=== PATIENT | male | born 1970 | race Asian ===

== ENCOUNTER 2016-04-29 11:58 | Inpatient (IN) | payer OTHER ==
--- NOTE | 2016-04-24 16:21 | PREOPHP ---
DATE OF ADMISSION: 04/29/2016 This is a preoperative internal medicine consultation and medical history and physical. Patient to have surgery with Dr. Gilberto Ulloa on 04/29/2016. REQUESTING PHYSICIAN: This consultation requested by Dr. Gilberto Ulloa for medical evaluation and clearance of a 45-year-old gentleman about to undergo surgery on his cervical spine. Thank you, Dr. Ulloa, for allowing us to participate in the care of this patient. HISTORY OF PRESENT ILLNESS: Dawson Sinclair is a 45-year-old gentleman. Issues with his neck secondary to a work injury. He is currently being admitted for correction of the above problem. In terms of prior surgical history, the patient has had a rotator cuff repair, arthroscopic on the r ight side, fractured his left arm and was admitted for bleeding ulcer probably secondary to use of n onsteroidal medications. Other than that, he has been relatively healthy. MEDICATIONS: He is currently taking Nexium and Pepcid regularly twice a day. ALLERGIES: HE IS NOT ALLERGIC TO ANY MEDICATIONS. SOCIAL HISTORY: The patient is , has 2 children. He does not smoke or drink alcoholic bever ages. Does drink coffee, is employed for [employer] and has no trouble sleeping at night. FAMILY HISTORY: Father at age 80 of a stroke, had high blood pressure. Mother, 71, and is a d iabetic, also has hypertension. One brother has hypertension and gout. One sister is in good healt h. There is a family history of diabetes, cancer, hypertension, stroke, heart disease. No obvious thyroid disease. REVIEW OF SYSTEMS HEENT: Periodic tension headaches, especially related to his neck. CARDIORESPIRATORY: Denies any chest pain or shortness of breath. GASTROINTESTINAL: No melena or hematemesis currently, but does have some acid symptomology periodic ally. GENITOURINARY: No urgency, frequency. MUSCULOSKELETAL: Positive for neck issues. NEUROPSYCHIATRIC: Unremarkable. GENERAL HEALTH: As above. PHYSICAL EXAMINATION: VITAL SIGNS: The patient's blood pressure was 120/80, pulse was 56 and regular, respirations were 1 8, temperature 98, height 5 foot 7-1/2 inches, weight 177 pounds. GENERAL: The patient was noted to be a well-developed, well-nourished male, alert and cooperative, in no apparent acute distress, oriented to time, place, and person. HEENT: Head was atraumatic. Eyes: Pupils were equal, reactive to light and accommodation. Fundi were benign. Tympanic membranes were unremarkable. Nose was negative. Mouth was unremarkable. Fa ir oral hygiene was present. NECK: Supple without any rigidity. Trachea was midline. Thyroid was unremarkable. Neck veins wer e flat. Carotid pulses were equal. No bruits were heard. BACK: Unremarkable. CHEST: Symmetrical. BREASTS AND AXILLARY: Did not reveal any masses. LUNGS: Clear to percussion and auscultation. HEART: PMI is fifth intercostal space at the midclavicular line. Regular sinus rhythm was noted. No significant murmurs, rubs, or gallops being elicited. ABDOMEN: Soft, good bowel sounds were noted. No significant organomegaly, masses, or tenderness. GENITALIA: Male external genitalia. RECTAL AND PROSTATIC: Per PCP. EXTREMITIES: Did not reveal any clubbing, edema or cyanosis. Peripheral pulses were physiologic. SKIN: Moist and warm without any eruptions. No gross lymphadenopathy was noted. NEUROLOGIC: Grossly intact. IMPRESSION: 1. Cervical disk disease in particular her C6-C7. 2. Gastroesophageal reflux disease and history of prior ulcers. 3. Stable health. DISCUSSION: Review of laboratory and other data revealed the following: The patient's chemistries revealed a normal glucose, BUN and creatinine. Liver function tests revealed minimally elevated ALT of 58, normal electrolytes, magnesium, iron, CBC, sed rate 2. A PT and PTT were normal as well. Dr. Ulola, I see no contraindications to the patient undergoing current proposed surgery under d esired form of anesthesia. I feel he is a suitable candidate at this particular point in time. I will be more than happy to follow him along with you during his stay at [facility]. Thank you again, Dr. Ulloa for allowing us to participate in the care of this patient. Dictated By: ANDREA VAZQUEZ/JARRELL Conf#: [id number] DID#: [id number]
[2016-04-28 13:44] VITALS: BMI 29.5
[2016-04-29] VITALS (26 sets, daily range): BP systolic 102–133; BP diastolic 58–85; PULSE 51–84; RESP 15–19; Ht 170.2 cm; Wt 77.3 kg
[~2016-04-29] VITALS: Ht 170.2 cm; Wt 77.3 kg
[2016-04-29] MEDS ORDERED: HYDR-902 PO (12:55)
[2016-04-29] MEDS ORDERED: FAMO40TA52 PO (12:55)
[2016-04-29] MEDS ORDERED: LACTATED RINGER'S 1,000 ML IV* SCH (13:00)
[2016-04-29] MEDS ORDERED: CEFAZOLIN 2 GM/50 ML (PMX) 50 ML IVPB ONE (13:00)
--- NOTE | 2016-04-29 14:45 | HPN ---
Date/Time of Note Date/Time of Note DATE: 04/29/16 TIME: 14:44 Interval H&P Admission Note Pt. seen H&P reviewed: No system changes SUSHANT SAMS PA-C Apr 29, 2016 14:44
[2016-04-29] MEDS ORDERED: BUPIVACAINE 0.25%/EPI (SDV) 30 ML INJ ONE (14:55)
[2016-04-29] MEDS ORDERED: POLYMYXIN/BACITRACIN 1L IRRIG ONE (14:55)
[2016-04-29] MEDS ORDERED: THROMBIN 5000 UNIT VIAL ONE ×3 (14:55→16:58)
[2016-04-29] MEDS ORDERED: SURGIFOAM POWDER 1 GM KIT ONE (14:56)
[2016-04-29] MEDS ORDERED: HYDROmorphONE 0.2 MG/ML PCA IV SCH (15:00)
[2016-04-29] MEDS ORDERED: ACETAMINOPHEN 325 MG TAB PO PRN (15:00)
[2016-04-29] MEDS ORDERED: HYDROmorphONE 1 MG/ML SYG IV PRN (15:00)
[2016-04-29] MEDS ORDERED: CEPASTAT LOZENGE MT PRN (15:00)
[2016-04-29] MEDS ORDERED: ONDANSETRON 4 MG INJ IV PRN ×2 (15:00→19:30)
[2016-04-29] MEDS ORDERED: BISACODYL 10 MG SUPP PR PRN (15:00)
[2016-04-29] MEDS ORDERED: AL HYDROX/MG HYDROX/SIMETH 30 ML CUP PO PRN (15:00)
[2016-04-29] MEDS ORDERED: NALOXONE (0.4 MG/ML) INJ IV PRN (15:00)
[2016-04-29] MEDS ORDERED: ZOLPIDEM 5 MG TAB PO PRN (15:00)
[2016-04-29] MEDS ORDERED: DIPHENHYDRAMINE 50 MG INJ IV PRN ×2 (15:00→19:30)
[2016-04-29] MEDS ORDERED: CYCLOBENZAPRINE 10 MG TAB PO PRN (15:00)
[2016-04-29] MEDS ORDERED: METOCLOPRAMIDE 10 MG INJ ONE (15:07)
[2016-04-29] MEDS ORDERED: DEXAMETHASONE 4 MG/ML 1 ML INJ ONE (15:07)
[2016-04-29] MEDS ORDERED: MIDAZOLAM 1 MG/ML 2 ML INJ ONE (15:07)
[2016-04-29] MEDS ORDERED: ROCURONIUM 50 MG INJ ONE ×2 (15:07→16:06)
[2016-04-29] MEDS ORDERED: HYDROmorphONE 2 MG/ML SYG ONE (15:07)
[2016-04-29] MEDS ORDERED: PROPOFOL 20 ML ONE (15:07)
[2016-04-29] MEDS ORDERED: CEFAZOLIN 1 GM INJ ONE (15:26)
[2016-04-29] MEDS ORDERED: METOPROLOL 5 MG INJ ONE (15:33)
[2016-04-29] MEDS ORDERED: GELATIN SIZE 100 SPONGE ONE (16:58)
[2016-04-29] MEDS ORDERED: NEOSTIGMINE 3 MG/3 ML SYRINGE ONE (17:42)
[2016-04-29] MEDS ORDERED: GLYCOPYRROLATE 1 MG INJ ONE (17:42)
--- NOTE | 2016-04-29 18:35 | OPR ---
DATE OF OPERATION: 04/29/2016 PREOPERATIVE DIAGNOSIS: C6 to C7 disk herniation with left cervical radiculopathy. POSTOPERATIVE DIAGNOSIS: C6 to C7 disk herniation with left cervical radiculopathy. IMPLANTS: Synthes Prodisc extra large 5 mm height, 19 mm width, 16 mm depth. OPERATION PERFORMED: 1. Anterior cervical diskectomy and spinal cord decompression at C6 to C7. 2. Anterior cervical disk arthroplasty at C6 to C7. 3. Use of operative microscope. 4. Use of C-arm fluoroscopy with interpretation without radiologist present. 5. Intraoperative neuromonitoring (2 hours). SURGEON: Gilberto Ulloa MD PRODUCTION MACHINIST: Bia Alexandra PA-C NEED FOR PRODUCT DESIGN ENGINEER: During this spinal surgical procedure, my training program assistant was used to retract and protect the spinal nerves and dural sac. My training program assistant also employed the suction catheters to evacuate blood from the surgical field to improve visualization of the neural structures. The training program assistant was medically necessary to facilitate the completion of the surgery in a safe and expeditious manner. [facility] [place] regulations, as well as hospital bylaws, preclude the use of non-licensed health care personnel, such as operating room technicians, to perform these functions. FINDINGS: Neuromonitoring at the start of the case revealed bilateral C6 amplitude down 20%, left C7 amplitude down 40%, right C7 down 20%. At the end of the case, nerve signals returned to normal. The patient had left-sided disk herniation at C6 to C7. ESTIMATED BLOOD LOSS: 30 mL. DRAINS: None. COMPLICATIONS OF PROCEDURES: None. ANESTHESIOLOGIST: Dr. Lam TYPE OF ANESTHESIA: General. INDICATIONS FOR PROCEDURE: This is a 45-year-old gentleman with left cervical radiculopathy in the setting of a disk herniation. He had failed nonoperative measures; therefore, I recommended proceeding with the above-mentioned surgery. Preoperatively discussed risks, benefits, and alternatives. He understood and wished to proceed. DESCRIPTION OF PROCEDURE IN DETAIL: The patient was identified in the preoperative holding area, given Ancef antibiotic, taken to the operating room, where he was successfully placed under general anesthesia. Neuromonitoring leads were placed. Sequential compressive devices were applied. Neuromonitoring was utilized during the procedure for 2 hours to include SSEP, MEP, and EMG. This was performed by [facility]. The start time was 3:45 p.m., closure time was 5:45 p.m. The patient's neck was prepped and draped in usual sterile fashion. A left-sided approach to the neck was performed. Skin was incised. The platysma was incised in line with the skin incision. I identified an interval between the sternocleidomastoid and strap muscles. I identified the anterior spine. I placed a bent spinal needle and took a lateral film to confirm the correct levels. I then subperiosteally dissected the longus colli musculature and placed self-retaining retractors. Anesthesiologist deflated and reinflated the cuff. I then placed Portland pins, made an annulotomy, and distracted the disk space. I then performed a complete radical diskectomy using curettes, pituitary rongeurs, and Kerrison punches. I removed the posterior longitudinal ligament. I identified the extruded fragment , which I removed. Once this was done, all nerve signals returned to normal. I irrigated the wound. I placed various trials and chose the appropriate disk height. I then made the keel cuts, removed them, and placed the final total disk arthroplasty device under C-arm imaging guidance. Once this was done, I took final AP and lateral images to assess for hardware and alignment of the spine. I irrigated the wound. I removed the Portland pins and used bone wax to stop bleeding from the bony edges. I reirrigated the wound and removed the retractors and closed the platysma with a running 2-0 Vicryl stitch and closed subcutaneous tissue with a 3-0 Vicryl stitch. Dermabond was then applied. The patient was then awakened from anesthesia and taken to recovery in stable condition. Lap, sponge, and instrument counts were correct x2. There were no apparent complications during the procedure. The patient will be admitted to the [facility] for routine postoperative care to include pain control, neurovascular checks, antibiotics, and physical therapy. Dictated By: GILBERTO PEÑA/JARRELL Conf#: [id number] DID#: [id number] NERY
--- NOTE | 2016-04-29 18:50 | CONS ---
DATE OF ADMISSION: 04/29/2016 DATE OF CONSULTATION: 04/29/2016 REASON FOR CONSULTATION: This is a postoperative followup. The patient had surgery with Dr. Gilberto carrera 04/29/2016. HISTORY OF PRESENT ILLNESS: Patient seen in the recovery room, still groggy from his anesthetic, ba rely arousable. PHYSICAL EXAMINATION: VITAL SIGNS: Blood pressure 121/71, O2 sat 100%, pulse 72, respirations 17, temperature 97.9. HEENT: Scar from anterior neck surgery. LUNGS: Clear. HEART: Reveals a regular rhythm. IMPRESSION: 1. Status post cervical spine surgery. 2. History of peptic ulcers on medications with gastroesophageal reflux. 3. Stable health. DISCUSSION: Plan is to continue his preoperative medications as well as monitor his general medical condition at this particular point in time. Post-operatively, the patient's vital signs and appear ance are stable. Thank you again, Dr. Ulloa for allowing us to participate in the care of this patient. Dictated By: ANDREA VAZQUEZ/JARRELL Conf#: [id number] DID#: [id number]
[2016-04-29] MEDS ORDERED: MEPERIDINE 25 MG INJ IV PRN (19:30)
[2016-04-29] MEDS ORDERED: HYDROmorphONE (0.2 MG/ML) 10ML SYG IV PRN ×3 (19:30)
[2016-04-29] MEDS ORDERED: METOCLOPRAMIDE 10 MG INJ IV PRN (19:30)
[2016-04-29] MEDS: FAMOTIDINE 20 MG TAB PO SCH (21:26)
[2016-04-29] MEDS: CEFAZOLIN 1 GM/50 ML (PMX) 50 ML IVPB SCH (21:29)
[2016-04-29] MEDS: D5W-0.45 NACL + KCL 20 MEQ 1,000 ML IV SCH (21:29)
--- NOTE | 2016-04-29 22:48 | RADRPT ---
PROCEDURE: Fluoroscopy services CLINICAL INDICATION: Neck pain TECHNIQUE: Fluoroscopy services during cervical spine surgery COMPARISON: None FINDINGS: Fluoroscopy services during cervical spine surgery. 9 intraoperative spot films were obtained at int ermediate stages during this procedure and demonstrate localization instrumentation over the cervica l spine. No fluoroscopy time was reported. IMPRESSION: Fluoroscopy services during cervical spine surgery. RPTAT: [facility] Physician Damaris Date Time Electronically viewed and signed by Physician Damaris on 04/29/2016 22:47 RS/
[2016-04-30 00:05] VITALS: BP 102/53; PULSE 60; RESP 17
[2016-04-30] MEDS: D5W-0.45 NACL + KCL 20 MEQ 1,000 ML IV SCH ×2 (00:42→10:42)
[2016-04-30 01:00] VITALS: BP 111/57; RESP 18
[2016-04-30] MEDS: CEFAZOLIN 1 GM/50 ML (PMX) 50 ML IVPB SCH ×2 (05:16→15:35)
[2016-04-30 05:23] LABS: ADD SCAN DIFF NO
[2016-04-30 05:31] LABS: BASOPHILS % 0.1 % (0.0-2.0); HEMATOCRIT 42.8 % (42.0-52.0); HEMOGLOBIN 14.3 g/dl (14.0-18.0); LYMPHOCYTES # 0.8 10^3/ul (0.8-2.9); LYMPHOCYTES % 7.1 % (15.0-51.0); MEAN CORPUSCULAR HEMOGLOBIN 29.1 pg (29.0-33.0); MEAN CORPUSCULAR HGB CONC 33.4 g/dl (32.0-37.0); MONOCYTE # 0.4 10^3/ul (0.3-0.9); MONOCYTES % 3.6 % (0.0-11.0); NEUTROPHILS % 88.8 % (39.0-77.0); PLATELET COUNT 333 10^3/UL (140-415); RED BLOOD COUNT 4.92 10^6/ul (4.70-6.10); RED CELL DISTRIBUTION WIDTH 14.6 % (11.5-14.5); WHITE BLOOD COUNT 11.3 10^3/ul (4.8-10.8)
[2016-04-30 05:32] LABS: CREATININE 0.73 mg/dl (0.61-1.24)
[2016-04-30 05:33] LABS: CALCIUM 8.5 mg/dl (8.4-10.2); MAGNESIUM 1.8 mg/dl (1.7-2.5)
[2016-04-30 07:40] VITALS: BP 115/64; PULSE 82; RESP 16
[2016-04-30] MEDS: FAMOTIDINE 20 MG TAB PO SCH (08:58)
[2016-04-30] MEDS ORDERED: DOCUSATE SODIUM 100 MG CAP PO SCH (09:00)
--- NOTE | 2016-04-30 09:27 | CONS ---
DATE OF ADMISSION: 04/29/2016 DATE OF CONSULTATION: 04/30/2016 POSTOPERATIVE CONSULT FOLLOWUP The patient seen approximately 7:40 a.m. HISTORY OF PRESENT ILLNESS: The patient alert this morning, answering questions, seems relatively c omfortable. Only complaint is pain at the surgical site. PHYSICAL EXAMINATION: VITAL SIGNS: Temperature 98.4, pulse 82, respirations 16, blood pressure 115/64, O2 sat 98% on room air. HEENT: Unremarkable, cervical collar in place. LUNGS: Clear. HEART: Reveals a regular rhythm. The rest of the exam is unremarkable. IMPRESSION: 1. Status post cervical spine surgery. 2. History of peptic ulcer disease and gastroesophageal reflux. LABORATORY DATA: The patient's laboratory reveals relatively normal white count with an elevated wh ite count of 11.3, possibly secondary to steroid use. Chemistries revealed normal electrolytes, BUN , creatinine, glucose, calcium, and magnesium. DISCUSSION AND PLAN: Per Dr. Ulloa, the patient will be ambulating, medically at this point margaux ears to be stable. Thank you again, Dr. Ulloa, for allowing us to participate in the care of this patient. Dictated By: ANDREA PICKENS MD SS/NTS Conf#: [id number] DID#: [id number]
[2016-04-30] MEDS ORDERED: HYDROCODONE/APAP (10/325) TAB PO PRN ×2 (10:00)
--- NOTE | 2016-04-30 12:54 | PN ---
Date/Time of Note Date/Time of Note DATE: 04/30/16 TIME: 12:53 Assessment/Plan Lines/Catheters IV Catheter Type (from Nrsg): Peripheral IV Assessment/Plan Assessment/Plan stable for D/C later this afternoon if cleared by PT f/u arranged post op rx given may resume outpatient meds may shower tomorrow - do not soak or scrub incision site Subjective 24 Hr Interval Summary patient c/o sore throat notes improvement in arm pain Exam/Review of Systems Vital Signs Vitals Vital Signs Date Time Temp Pulse Resp B/P Pulse Ox O2 Delivery O2 Flow Rate FiO2 04/30/16 07:40 98.4 82 16 115/64 98 Room Air 04/29/16 19:30 2.0 Intake and Output 04/29/16 04/29/16 04/30/16 15:00 23:00 07:00 Intake Total 1750 ml 950 ml Output Total 30 ml 850 ml Balance 1720 ml 100 ml Exam Free Text/Dictation NVID incision C/D/I Results Result Diagram: 04/30/16 0430 04/30/16 0430 SUSHANT SAMS PA-C Apr 30, 2016 12:54
--- NOTE | 2016-05-03 10:33 | DS ---
DATE OF ADMISSION: 04/29/2016 DATE OF DISCHARGE: 04/30/2016 ADMITTING DIAGNOSIS: Cervical disk herniation. DISCHARGE DIAGNOSES: Cervical disk herniation. PROCEDURE: Patient was taken to the operating room on 04/29/2016 and underwent cervical disk replac ement. HOSPITAL COURSE: The patient was admitted to [facility] and after undergoing the above procedu re, his postop course was uncomplicated. By postoperative day 1 he was deemed stable for discharge, with followup arranged with the undersigned. Dictated By: ZAMZAM GERMAN MD BB/JARRELL Conf#: [id number] DID#: [id number]
== END 2016-04-30 17:25 | disposition home or self-care (01) | DRG 518 ==
LOC: REC 11:58 → MS1 19:20
PROVIDERS: ADMIT Specialist; ATTEND Specialist
PROC: 0RT30ZZ Resection of Cervical Vertebral Disc, Open Approach (ICD-10-PCS; 2016-04-29)
PROC: 0RR30JZ Replacement of Cervical Vertebral Disc with Synthetic Substitute, Open Approach (ICD-10-PCS; principal; 2016-04-29 15:00)
DX: M50.123 Cervical disc disorder at C6-C7 level with radiculopathy (principal); K21.9 Gastro-esophageal reflux disease without esophagitis; Z87.11 Personal history of peptic ulcer disease
CPT/HCPCS: 72040; 80048; 83735; 85025; 97116; 97162; 97530; J0690; J1100; J1170; J2250; J2710; J2765; J3480